=== PATIENT | female | born 1955 | race Hispanic/Latino ===

== ENCOUNTER 2018-09-14 12:51 | Emergency (ER) | payer BC ==
[2018-09-14 13:31] LABS: #Eosinphils 0.1 thou/uL (0.0-0.7); #Lymphocytes 2.6 thou/uL (1.20-3.40); #Monocytes 0.4 thou/uL (0.11-0.59); #Neutrophils 3.6 thou/uL (1.40-6.50); %Basophils 0.5 % (0.0-1.0); %Eosinophils 1.3 % (0.0-10.0); %Lymphocytes 38.8 % (21.0-51.0); %Monocytes 5.8 % (0.0-10.0); %Neutrophils 53.6 % (42.0-75.0); Hemoglobin 14.9 g/dL (12.0-16.0); Mean Corpuscular HGB CONC 34.4 g/dL (32.0-36.0); Mean Corpuscular Hemoglobin 31.2 pg (27.0-31.0); Mean Corpuscular Volume 90.5 fL (78.0-98.0); Mean Platelet Volume 8.1 fL (7.4-10.4); Platelet Count 253 thou/uL (130-400); RBC Distribution Width 11.4 % (11.5-14.5); Red Blood Cell (RBC) Count 4.77 mill/uL (4.20-5.40); White Blood Cell (WBC) Count 6.6 thou/uL (4.8-10.8)
[2018-09-14 13:37] LABS: PTT 28.7 SEC (22.9-36.1); Prothrombin Time 13.3 SEC (12.0-14.7)
--- NOTE | 2018-09-14 13:39 | CT ---
FCT brain noncontrast: HISTORY: 63-year-old female with right facial numbness, right arm tingling and weakness, acute stroke symptoms This stroke alert protocol report was verbally given by Dr. Jara to medical support assistant Norris Valle Of the [facility] at 1:36 PM for 12/27/2018. He immediately notified Dr. Beaulieu. FINDINGS: There is no evidence of acute intra-axial or extra-axial hemorrhage. No mass effect, midline shift, o r extra-axial fluid collection. No evidence of obstructive hydrocephalus. Calvarium is intact. IMPRESSION: No acute intracranial findings.
[2018-09-14] MEDS ORDERED: traMADol HCl 50 MG TAB ONE (13:43)
[2018-09-14 13:46] LABS: ALT (SGPT) 14 U/L (8-55); AST (SGOT) 15 U/L (5-34); Albumin 4.2 g/dL (3.4-4.8); Alkaline Phosphatase 84 U/L (40-150); Anion Gap 13 mmol/L (10-20); BUN (Urea Nitrogen) 17 mg/dL (9.8-20.1); Bilirubin, Total 0.3 mg/dL (0.2-1.2); CK (CPK) 104 U/L (29-168); Calc. Creatinine Clearance 0 mL/min (70-130); Calcium 9.3 mg/dL (7.8-10.44); Carbon Dioxide 28 mmol/L (23-31); Chloride 100 mmol/L (98-107); Estimated GFR-MDRD 74; Globulin 3.6 g/dL (2.4-3.5); Glucose 226 mg/dL (80-115); Potassium 3.9 mmol/L (3.5-5.1); Protein, Total 7.8 g/dL (6.0-8.3); Sodium 137 mmol/L (136-145)
[2018-09-14] MEDS ORDERED: Nitroglycerin 0.4 MG TAB 1 EACH ONE (17:58)
[2018-09-14] MEDS ORDERED: Aspirin Chewable 81 MG TAB ONE (17:58)
== END 2018-09-14 19:37 | disposition short-term general hospital (02) ==
LOC: ERS 12:51
DX: R94.31 Abnormal electrocardiogram [ECG] [EKG] (principal); E11.9 Type 2 diabetes mellitus without complications; E78.5 Hyperlipidemia, unspecified; I10 Essential (primary) hypertension; F41.9 Anxiety disorder, unspecified; F32.9 Major depressive disorder, single episode, unspecified; Z86.73 Personal history of transient ischemic attack (TIA), and cerebral infarction without residual deficits; Z79.84 Long term (current) use of oral hypoglycemic drugs; Z79.899 Other long term (current) drug therapy
CPT/HCPCS: 36416; 70450; 80053; 82550; 84484; 85025; 85610; 85730; 93005; 94760